=== PATIENT | female | born 1950 | race African-American/Black ===

== ENCOUNTER 2017-06-19 11:27 | Emergency (ER) | payer OTHER ==
[~2017-06-19] VITALS: Ht 165.1 cm; Wt 61.2 kg
[2017-06-19] MEDS ORDERED: ZANTAC 150MG T150 MG PO (11:44)
[2017-06-19] MEDS ORDERED: HTN PO (11:45)
[2017-06-19 12:14] LABS: INFLUENZA A ANTIGEN None Detected (None Detect)
[2017-06-19 12:15] LABS: INFLUENZA B ANTIGEN None Detected (None Detect)
[2017-06-19] MEDS ORDERED: NORCO 5-325 TA1 EACH PO (12:51)
[2017-06-19] MEDS ORDERED: PREDNISONE50 MG PO (12:51)
[2017-06-19] MEDS ORDERED: GUAIFENESIN1200 MG PO (12:51)
[2017-06-19] MEDS ORDERED: AMOXICILLIN 50500 M1 PO (12:51)
[2017-06-19 13:06] VITALS: BP 159/89
== END 2017-06-19 13:07 | disposition home or self-care (01) ==
LOC: M.ERS 11:27
PROVIDERS: Personal Emergency Response Attendant
DX: J40 Bronchitis, not specified as acute or chronic (principal); K21.9 Gastro-esophageal reflux disease without esophagitis; I10 Essential (primary) hypertension

== ENCOUNTER → 2017-07-24 | Outpatient (CLI) | payer OTHER ==
[~2017-07-24] MED LIST: AMOXICILLIN 50500 M1 PO; GUAIFENESIN1200 MG PO; HTN PO; NORCO 5-325 TA1 EACH PO; PREDNISONE50 MG PO; ZANTAC 150MG T150 MG PO
== END ==
LOC: M.RAD 09:40
DX: J40 Bronchitis, not specified as acute or chronic (principal); R06.02 Shortness of breath

== ENCOUNTER → 2018-02-23 | Outpatient (CLI) | payer OTHER | LOC: M.LAB 03:40 | DX: Z01.812 Encounter for preprocedural laboratory examination (principal) ==

== ENCOUNTER → 2018-03-26 | Outpatient (CLI) | payer OTHER | LOC: M.RAD 08:32 | DX: Z12.31 Encounter for screening mammogram for malignant neoplasm of breast (principal) ==